=== PATIENT | male | born 1945 | race Caucasian/White ===

== ENCOUNTER 2019-04-09 09:38 | Inpatient (IN) ==
[2019-04-09] MEDS ORDERED: ZOFRAN IV PRN (10:32)
[2019-04-09] MEDS ORDERED: NS 1,000 ML IV ONE (10:41)
[2019-04-09] MEDS ORDERED: VANCOMYCIN IV PER PHARMACY MISC SCH (10:45)
[2019-04-09] MEDS ORDERED: DUONEB (A & A) INH ONE (11:00)
--- NOTE | 2019-04-09 11:18 | Diag Imaging Result Doc PS360 ---
EXAM: CHEST-2 VIEWS - 04/09/2019 HISTORY: r/o pna TECHNIQUE: Chest two views COMPARISON: 04/01/2019 portable chest FINDINGS: Heart size is normal. There is some tortuosity of the thoracic aorta. There is apparent left midlung granuloma from old granulomatous disease There is decreased subsegmental atelectasis at the left base. There is no consolidation, pleural effusion, or pneumothorax identified. Central venous catheter remains in place. There is thoracic spondylosis noted. IMPRESSION: Decreased subsegmental atelectasis at left base compared to prior. No evidence of pneumonia. Electronically signed by Mac Olivera 04/09/2019 11:16 AM
[2019-04-09] MEDS: TYLENOL PO PRN ×2 (11:28→20:25)
--- NOTE | 2019-04-09 11:31 | EKG Report ---
Test Performed on : 04/09/2019 11:18:17 AM Test Reason : rythm eval Blood Pressure : / mmHG Vent. Rate : 082 BPM Atrial Rate : 082 BPM P-R Int : 156 ms QRS Dur : 078 ms QT Int : 372 ms P-R-T Axes : 033 000 017 degrees QTc Int : 434 ms Normal sinus rhythm. Normal ECG When compared with ECG of 01-APR-2019 07:21, No significant change was found Confirmed by Sarthak Beck MD ([id number]) on 04/10/2019 4:57:12 PM
[2019-04-09] MEDS: ZOSYN 3.375 GM in NS 50 ML IV SCH ×2 (11:44→18:25)
[2019-04-09 11:52] LABS: ALLEN TEST YES; BE 2.5 mmoll (-3.0-3.0); BLOOD TYPE ARTERIAL; HCO3-(ACT) 26.8 mmoll (20.0-26.0); METHB 1.4 % (0.0-1.5); O2(CT) 21.1 mL/dL (15.0-23.0); O2HB 95.4 % (95.0-99.0); PCO2(98.6) 32 mmHg (35-45); PO2(98.6) 159 mmHg (60-100); SAMPLE BLOOD; SAO2 99.4 % (95.0-100.0); THB 15.5 g/dL (11.5-17.4)
[2019-04-09] MEDS: DUONEB (A & A) INH SCH ×3 (11:53→19:45)
[2019-04-09 11:54] LABS: MODALITY CANNULA
[2019-04-09 12:07] LABS: INR 1.07
[2019-04-09 12:09] LABS: BASO# 0.01 X1000 (0.0-0.2); BASO% 6.7 % (0.0-0.8); EOS# 0.01 X1000 (0.0-0.7); EOS% 6.7 % (0.0-10.0); HEMATOCRIT 34.4 % (42.0-52.0); HEMOGLOBIN 11.4 g/dL (14.0-18.0); LYMPH# 0.11 X1000 (1.2-3.4); LYMPH% 73.3 % (20.5-51.1); MCH 32.3 PG (27-31); MCHC 33.1 g/dL (33-37); MCV 97.5 FL (81-99); MONO# 0.02 X1000 (0.11-0.59); MONO% 13.3 % (1.7-9.3); MPV 11.7 FL (7.4-10.4); PLT 60 X1000 (130-400); RBC 3.53 XMIL (4.7-6.1); RDW 12.1 % (11.5-14.5); WBC < 0.20 X1000 (4.8-10.8)
[2019-04-09 12:46] LABS: AGAP 12; ALB/GLOB RATIO 1.6; ALBUMIN 4.1 g/dL (3.5-5.0); ALKALINE PHOSPHATASE 73 U/L (32-122); BUN 20 mg/dL (8-22); CALCIUM 9.1 mg/dL (8.8-10.2); CHLORIDE 96 mmol/L (98-107); CK PROFILE 30 U/L (24-204); COSMO 273; CREATININE 0.8 mg/dL (0.7-1.2); ESTIMATED GFR > 60; GLUCOSE 129 mg/dL (70-104); GOT 10 U/L (10-34); GPT 11 U/L (10-44); MAGNESIUM 1.8 mg/dL (1.5-2.7); POTASSIUM 4.2 mmol/L (3.5-5.1); SODIUM 134 mmol/L (136-145); TCO2 26 mmol/L (25-35); TOTAL BILIRUBIN 1.59 mg/dL (0.20-1.00); TOTAL PROTEIN 6.6 g/dL (6.3-8.3)
--- NOTE | 2019-04-09 14:31 | HISTORY AND PHYSICAL ---
PRIMARY CARE PROVIDER: Sarthak Trujillo. PRIMARY ENT: Dr. Garcia Villanova CHIEF COMPLAINT: He did not feel well. He has had a low-grade fever. HISTORY OF PRESENT ILLNESS: Mr. Theo Cordova is a 74-year-old male who back in September 2018, was diagnosed with non-Hodgkin small B-cell lymphoma. He had 4 chemo treatments and then in January, it was turned to a diagnosis of diffuse large B-cell lymphoma. His first chemo since that diagnosis was on the . The very next day he had Udenyca for a low neutrophil. He is now 8 days later and he still has significant neutropenia. He states that the night he was having chills and he felt lightheaded this morning but otherwise he has had no complaints. No coughing up any colors. Not short of breath. However, when he arrived here, he had a fever with a low O2 saturation. Despite that he did not have any shortness of breath. He did state that for the last 4 mornings, not this morning. 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 He did 12 hour shifts 4 days in a row. He also states that the chief had the flu, but he does not think that they had been in the office. So we are admitting him for neutropenic fever. PAST MEDICAL HISTORY: 1. Non-Hodgkin small B-cell lymphoma, September 2018, received 4 chemo treatments. 2. Diffuse large B-cell lymphoma diagnosed in January. First chemo treatment on the 02 of April. 3. Looks like he may take medication for gout, but he denies history of gout. He essentially denies any other history. SURGICAL HISTORY: 1. Bilateral inguinal hernia repair. 2. Bilateral cataracts. 3. Most recently right chest port. 4. On March 26, partial tonsillectomy and right tonsil biopsy. 5. On March 26. He also had a right neck lymph node removed. SOCIAL HISTORY: Denies tobacco, alcohol or illicit drug use. 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 He gets around without any problems. FAMILY HISTORY: Mother no medical conditions. Father had skin cancer and then he just lost his son in January. His son was age 42 from colon cancer. ALLERGIES: No known drug allergies. HOME MEDICATIONS: Not reconciled yet. REVIEW OF SYSTEMS: Fourteen point review of systems are complete and all were negative except for those mentioned above HPI. PHYSICAL EXAMINATION: VITAL SIGNS: Temperature 100.3 degrees, heart rate 78, respiratory rate 14, blood pressure 106/70, O2 saturation 95% on 3 L nasal cannula. GENERAL: Mr. Theo Cordova is a 74-year-old male. He is in no acute distress. He is able answer questions appropriately. HEENT: Atraumatic, normocephalic. Pupils equal, round, reactive to light. Extraocular movements intact. Mucous membranes are dry. NECK: Trachea midline. CARDIOVASCULAR: S1, S2. Regular rate and rhythm. No rubs, gallops, murmurs. No lower extremity edema. +2 dorsalis and radial pulses. Negative JVD or carotid bruits. PULMONARY: Clear to auscultate. Bilateral breath sounds. No accessory muscle use or work of breathing noted. GI: Soft, nontender, nondistended. Positive bowel sounds x4. EXTREMITIES: Moves all extremities equally. Full range of motion. NEUROLOGIC: A and O x3. Follows commands. Sensory is intact. SKIN: Warm, dry, intact but pale. LABORATORY DATA: White blood cells less than 0.20, hemoglobin 11.4, hematocrit 34.4, platelet count 60,000, neutrophil count 0. INR is 1.07, PTT is 26.0. ABGs pH 7.50, pCO2 32, PO2 159, bicarb 26, base excess 2.5, saturation 95%, carboxyhemoglobin is 2.7 lactate 1.4. Sodium 134, potassium 4.2, BUN 20, creatinine 0.8, glucose 129, calcium 9.1, magnesium is 1.8, bilirubin is 1.59, AST 10, ALT 11. CK 30, troponin 14, proBNP 106. Albumin is 4.1, lactate 1.9. MICROBIOLOGY: Micro blood cultures pending. IMAGING: Chest x-ray, decreased subsegmental atelectasis with the left at the left base compared to prior. No evidence of pneumonia. EKG normal sinus rhythm, rate 82, QTc is 434. ASSESSMENT/PLAN: 1. Neutropenic fever. He is on reverse isolation. Neutropenic diet. Dr. Tapia consulted. Broad- spectrum antibiotics started. Intravenous fluids given. Lactate series ordered. 2. Diffuse large B-cell lymphoma. The first chemo treatment was April 02. The day after his when he received the Udenyca for the low neutrophil and white blood cell count. Dr. Tapia is following. 3. Sepsis, however lactates are normal. He is requiring oxygen, extremely low white count and he has a fever, so broad-spectrum antibiotics and IV fluids. 4. Anemia. We will do some anemia labs. 5. Hyperbilirubinemia. Could be dehydration. 6. Hyperglycemia. We will do a hemoglobin A1c. 7. Deep venous thrombosis prophylaxis. Sequential compression devices. 8. Thrombocytopenia. Platelet count is 60,000. Again, he has got Dr. Tapia following him. Dictated by PORTILLO Massey for Terrell Stiles MD cc: PORTILLO Massey MD
[2019-04-09] MEDS ORDERED: NORCO-5 PO PRN (15:25)
[2019-04-09] MEDS ORDERED: VANCOMYCIN 2,000 MG in NS 500 ML IV ONE (15:30)
[2019-04-09] MEDS: NS 1,000 ML IV SCH (16:38)
[2019-04-09 17:18] LABS: HEMOGLOBIN A1C 5.6 % (4.8-6.0)
[2019-04-09 17:19] LABS: IRON SATURATION 29 %; TIBC 204 ug/dL; TOTAL IRON 60 ug/dL (53-167); UNBOUND IRON 144 ug/dL (112-346)
[2019-04-09 17:33] LABS: FERRITIN 571 ng/mL (30-400)
[2019-04-09 17:38] LABS: URINE SOURCE CLEAN CATCH
--- NOTE | 2019-04-09 17:40 | HEMO/ONC CONSULTATION ---
DATE: 04/09/2019 REASON FOR CONSULTATION: He is a known patient of ours, for the treatment of diffuse large B-cell lymphoma. HISTORY OF PRESENT ILLNESS: The patient came to our clinic today for a lab check because he was dizzy at home and just overall not feeling well. He had a temperature of 99.3 degrees with chills. We ran a CBC and he was found to have an absolute neutrophil count of 0.1. We called the hospitalist to direct admit the patient for neutropenic fevers and requested him to obtain blood cultures and start him on vancomycin and Zosyn. Hospitalist service admitted Mr. Cordova very quickly. His ER workup found a 0.00 neutrophil count. His flu test was negative. His bilirubin was found to be doubled from what we have in the office. Last count was 0.8, is apparently 1.59 in the ER. Blood cultures have been drawn and the patient has been started on Zosyn and normal saline. We treat the patient in the clinic for diffuse large B-cell lymphoma. He recently started treatment with R-CHOP which is rituximab, Cytoxan, Adriamycin and vincristine. His first dose was on 04/02/2019, last . The patient received Udenyca 6mg, a white blood cell booster on 04/03/2019. Patient was originally diagnosed with non-Hodgkin's lymphoma and he took four chemo treatments of Rituxan and Treanda. A recent biopsy of his right tonsil showed diffuse large B-cell lymphoma and treatment was changed. The patient has no other medical history. PAST SURGICAL HISTORY: 1. Bilateral inguinal hernia repair. 2. Bilateral cataracts. 3. Right chest port. 4. Partial tonsillectomy and right tonsil biopsy. 5. Right neck lymph node removal. SOCIAL HISTORY: Patient denies tobacco, alcohol, or illicit drug use. ALLERGIES: No known drug allergies. HOME MEDICATIONS: Allopurinol for tumor lysis prophylaxis. Zinc sulfate, Zofran, vitamin B complex, Reglan, promethazine, omeprazole, and Zyrtec. REVIEW OF SYSTEMS: Pertinent positives were mentioned in the HPI. All other review of systems negative. PHYSICAL EXAMINATION: Vital Signs: Temperature 98.6 degrees, status post acetaminophen, pulse rate 81, respiratory rate 20, blood pressure 127/75, O2 saturation 97% on room air. 0/10 pain. General: Pleasant gentleman in no acute distress. HEENT: Sclerae anicteric. PERRLA. Oral mucosa dry. Cardiovascular: Normal S1, S2. Heart rate and rhythm regular. No murmurs appreciated. Respiratory: Lung sounds are clear to auscultation. Normal respiratory effort. Gastrointestinal: Abdomen is soft, nontender, nondistended. Extremities: No lower extremity edema noted. Neurological: Alert and oriented x3. Follows commands. No focal motor deficits noted. Normal gait. Skin: Warm dry and intact. Pale. LABORATORY DATA: WBCs less than 0.2, hemoglobin 11.4, hematocrit 34.4. ANC 0.00. Sodium 134, potassium 4.2, total bilirubin 1.59, AST 10, ALT 11, alkaline phosphatase 73, plasma lactate 1.9. RADIOLOGY: Chest x-ray shows decreased subsegmental atelectasis at the left base compared to prior. No evidence of pneumonia. ASSESSMENT AND PLAN: 1. Neutropenic fever. The patient has been placed on reverse isolation and placed on broad- spectrum antibiotics. Blood cultures have been run. IV fluids infusing. Continue medical management. We will continue to monitor. 2. Diffuse large B-cell lymphoma. The patient had his first R-CHOP treatment last , 04/02/2019. He had Udenyca 6 mg on 04/03/2019. This drug cannot be repeated for 14 days. 3. Anemia. This is most likely related to chemotherapy. It is mild and stable. We will continue to monitor. 4. Thrombocytopenia. The patient's platelets are 60,000. They have not been that low in the office. We will continue to monitor. Check B12 and folate. 5. Hyperbilirubinemia. Aware. We will continue to monitor. 6. Deep venous thrombosis prophylaxis. Put the patient on sequential compression devices for now. Dictated by PORTILLO Escamilla for Tito Tapia MD cc: Tito Tapia MD [facility]
[2019-04-09 17:52] LABS: BILIRUBIN URINE NEGATIVE (NEGATIVE); BLOOD URINE NEGATIVE (NEGATIVE); COLOR YELLOW; GLUCOSE URINE NEGATIVE (NEGATIVE); KETONE URINE NEGATIVE (NEGATIVE); LEUKOCYTES URINE NEGATIVE (NEGATIVE); NITRITE URINE NEGATIVE (NEGATIVE); PH URINE 6.5; PROTEIN URINE NEGATIVE (NEGATIVE); SP GRAVITY URINE 1.014; TURBIDITY URINE CLEAR (CLEAR); UROBILINOGEN URINE NORMAL (NORMAL)
[2019-04-09 17:58] LABS: UR EPITHELIAL CELLS <10 /HPF (<10); URINE BACTERIA NEGATIVE /HPF; URINE RBC <10 /HPF (<10); URINE WBC <10 /HPF (<10)
[2019-04-09] MEDS: GRANIX SUBQ SCH (18:26)
--- NOTE | 2019-04-09 19:24 | HISTORY AND PHYSICAL ---
ADDENDUM: This is a patient with diffuse B-cell lymphoma. He has had chemotherapy. He had R- CHOP on 04/02/2019. I think he got the filgrastim type medication on Saturday. This is the second episode of lymphoma, but in any case, he came in with fever. He is profoundly neutropenic with a white count of less than 1. So, in any case, the patient was evaluated. He was placed on Neupogen and had improvement. He will be placed on broad-spectrum antibiotics and we will continue to follow. cc: Terrell Stiles MD
[2019-04-10] MEDS: DUONEB (A & A) INH SCH ×7 (00:20→23:17)
[2019-04-10] MEDS: ZOSYN 3.375 GM in NS 50 ML IV SCH ×5 (00:25→23:54)
[2019-04-10 08:11] LABS: AGAP 11; ALBUMIN 3.1 g/dL (3.5-5.0); ALKALINE PHOSPHATASE 56 U/L (32-122); BUN 13 mg/dL (8-22); CALCIUM 8.3 mg/dL (8.8-10.2); CHLORIDE 103 mmol/L (98-107); COSMO 279; CREATININE 0.8 mg/dL (0.7-1.2); ESTIMATED GFR > 60; GLUCOSE 117 mg/dL (70-104); GOT 9 U/L (10-34); GPT 11 U/L (10-44); SODIUM 139 mmol/L (136-145); TCO2 25 mmol/L (25-35); TOTAL BILIRUBIN 0.84 mg/dL (0.20-1.00); TOTAL PROTEIN 6.2 g/dL (6.3-8.3)
[2019-04-10 08:29] LABS: BASO# 0.01 X1000 (0.0-0.2); BASO% 5.3 % (0.0-0.8); EOS# 0.02 X1000 (0.0-0.7); EOS% 10.5 % (0.0-10.0); HEMATOCRIT 30.9 % (42.0-52.0); HEMOGLOBIN 9.9 g/dL (14.0-18.0); LYMPH% 52.6 % (20.5-51.1); MCH 31.7 PG (27-31); MONO# 0.06 X1000 (0.11-0.59); MONO% 31.6 % (1.7-9.3); MPV 11.8 FL (7.4-10.4); PLT 52 X1000 (130-400); RBC 3.12 XMIL (4.7-6.1); RDW 12.1 % (11.5-14.5); WBC < 0.20 X1000 (4.8-10.8)
--- NOTE | 2019-04-10 08:34 | Diag Imaging Result Doc PS360 ---
CT THORAX W/CONTRAST - 04/10/2019 INDICATION: pneumonia COMPARISON: Chest x-ray 04/09/2019 FINDINGS: There is some linear atelectasis in the lung bases. There are calcified granulomas in the left upper lobe. No infiltrates. Airways are clear. No adenopathy. Heart and great vessels are normal. Upper abdominal images are normal. There is a right chest port in good position. There are moderate degenerative changes of the spine. No acute or suspicious bony lesion. IMPRESSION: No acute process. This exam was performed using automated exposure control, adjustment of mA or kV according to patient size, and/or use of iterative reconstruction technique Electronically signed by Marc Haines 04/10/2019 8:32 AM
--- NOTE | 2019-04-10 09:22 | PROGRESS NOTE ---
DATE: 04/10/2019 SUBJECTIVE: Mr. Cordova is a 74-year-old male who presented to the emergency room via direct admit from Dr. Tapia's office. He is on chemotherapy, CHOP regimen, for diffuse large cell, B cell lymphoma. His last treatment was 04/02/2019. He was in Dr. Tapia's office yesterday when they found him to have a low neutrophil count and a fever of 99.3 with chills. The patient was directly admitted yesterday for monitoring and medications. Today, he is reporting to be feeling fine. His is at the bedside. He says that it hurts to swallow. He denies any chills, headaches or shortness of breath. OBJECTIVE: Vital signs: Blood pressure 144/82, heart rate 90, temperature 98.7 today, and yesterday's max was 100.3. Saturation 95% on room air, and his respirations are 19 per minute. I's and O's show a positive balance of 2325. Urine void is 225 mL. General: A well appearing male, up in bed, in no acute distress. HEENT: Normocephalic and atraumatic. Throat is white with plaques on the right tonsil, presumably at a healing biopsy site. The rest of the throat looks erythematous. Cardiac: Regular rate and rhythm. No murmurs, gallops or rubs. Lungs: Clear to auscultation bilaterally. GI: Soft, nontender and nondistended. Bowel sounds present. Extremities: There is no edema in his arms or his legs. Radial pulses are 2+ bilateral in tibialis anterior, 2+ dorsalis pedis weak pulse. 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 MEDICATIONS: We started tbo-filgrastim yesterday. DIAGNOSTIC DATA: White blood cell count less than 0.2, hemoglobin 9.9, hematocrit 30.9, platelets 52. Sodium 139, potassium 4.0, chloride 103, bicarb 25, BUN is 13, creatinine 0.8, glucose 117, calcium 8.3. Bilirubin is 0.84, AST is 9, ALT is 11, total protein 6.2, albumin 3.1. A1c is 5.6. Strep has been negative. influenza was negative. ASSESSMENT: A 74-year-old male who is currently undergoing chemotherapy regimen for diffuse large cell, B cell lymphoma, presents with neutropenic fever. 1. Neutropenic fever with associated chills. Source of infection is not yet known. On reverse isolation, broad spectrum antibiotics, IV fluids and lactate monitoring. 2. Diffuse large cell, B cell lymphoma. Current chemotherapy treatment, most recent was on 04/02/2019, receiving Udenyca in office. 3. Sepsis with normal lactate because he needs oxygen. 4. Anemia of chronic disease. Elevated ferritin. We will continue to monitor. 5. DVT prophylaxis with SCD pumps for his legs. 6. Thrombocytopenia. Platelet count is still dropping. We will recheck vitamin B12 and folate levels. Dictated by Kaylin Saavedra, Medical Student for Terrell Stiles MD This chart was documented by, Kaylin Saavedra, Medical Student and accurately reflects the services performed, treatment plan and medical decisions as attested by the providers signature Terrell Stiles MD. cc: Terrell Stiles MD [facility]
[2019-04-10] MEDS: GRANIX SUBQ SCH (10:06)
--- NOTE | 2019-04-10 12:53 | HEMO/ONC PROGRESS NOTE ---
DATE: 04/10/2019 SUBJECTIVE: Mr. Cordova is feeling about the same this morning. He has no significant complaint. His fevers have improved. He remains on reverse isolation. There were no acute events overnight. He got his Neupogen injection late in the evening yesterday. OBJECTIVE: Vital Signs: Temperature 98.7 degrees, pulse rate 94, respiratory rate 17, blood pressure 144/82, O2 saturation 94% on room air. He is in 0/10 pain. PHYSICAL EXAMINATION: General: The patient is pleasant and doing well. HEENT: Sclerae is anicteric. PERRLA. Oral mucosa is normal. Oropharynx is red with white plaque from recent tonsil biopsy. Cardiac: Regular rate and rhythm. Normal S1, S2. No murmurs noted. Respiratory: Lung sounds are clear to auscultation. Gastrointestinal: Abdomen is soft, nontender, nondistended. Extremities: No lower extremity edema noted. Neurological: Alert and oriented x3. Follows commands. No focal motor deficits noted. Skin: Warm, dry and intact. The patient appears pale. Lymphatic: No lymphadenopathy noted. LABORATORY DATA: WBCs less than -2.0, hemoglobin 9.9, hematocrit 30.9, platelet count 52,000. ANC 0.0. Sodium 139, potassium 4.0, calcium 8.3. Total bilirubin 0.84. Total protein 6.2, albumin 3.1. RADIOLOGY: Chest CT shows no acute process. Negative for pneumonia. ASSESSMENT AND PLAN: 1. Neutropenic fevers. The patient remains in reverse isolation. His neutrophils continue to remain 0. He is on broad-spectrum antibiotics. Rapid strep negative. Flu screen negative. Preliminary blood cultures so far negative. Continue the patient on IV fluids. Continue to monitor fevers closely. 2. Diffuse large B-cell lymphoma. Continue the patient on Granix injections daily until he reaches an ANC greater than 1.5. We will continue to monitor closely. 3. Anemia. This is most likely related to his chemotherapy. We will continue to monitor closely. 4. Thrombocytopenia. This is also most likely related to his chemotherapy. Today they are 52,000. We will continue to monitor closely. He will need a platelet transfusion for a count less than 20,000 or if he is bleeding. His B12 and folate are normal. 5. Hyperbilirubinemia. This has resolved. His bilirubin is normal today. 6. Deep venous thrombosis prophylaxis. Keep the patient in SCDs and encourage him to get up and walk about the room. 7. Nutrition. The patient needs protein shakes. His protein is slightly low. Please provide a protein with each meal. Dictated by PORTILLO Escamilla for Tito Tapia MD cc: Tito Tapia MD
[2019-04-10] MEDS: VANCOMYCIN 1,800 MG in NS 250 ML IV SCH (16:00)
[2019-04-10] MEDS: NS 1,000 ML IV SCH ×2 (16:01→19:38)
[2019-04-11] MEDS: TYLENOL PO PRN ×2 (00:27→14:36)
[2019-04-11] MEDS: DUONEB (A & A) INH SCH ×6 (03:35→23:11)
[2019-04-11] MEDS: ZOSYN 3.375 GM in NS 50 ML IV SCH ×4 (04:27→22:22)
[2019-04-11] MEDS: NS 1,000 ML IV SCH ×3 (04:28→20:53)
[2019-04-11 08:14] LABS: AGAP 11; ALB/GLOB RATIO 0.9; ALBUMIN 3.1 g/dL (3.5-5.0); ALKALINE PHOSPHATASE 55 U/L (32-122); BUN 7 mg/dL (8-22); CALCIUM 8.7 mg/dL (8.8-10.2); CHLORIDE 102 mmol/L (98-107); COSMO 274; CREATININE 0.8 mg/dL (0.7-1.2); ESTIMATED GFR > 60; GLUCOSE 111 mg/dL (70-104); GOT 11 U/L (10-34); GPT 13 U/L (10-44); POTASSIUM 4.1 mmol/L (3.5-5.1); SODIUM 138 mmol/L (136-145); TCO2 25 mmol/L (25-35); TOTAL PROTEIN 6.4 g/dL (6.3-8.3)
[2019-04-11 08:59] LABS: EOS# 0.01 X1000 (0.0-0.7); EOS% 1.2 % (0.0-10.0); HEMATOCRIT 30.8 % (42.0-52.0); HEMOGLOBIN 9.8 g/dL (14.0-18.0); IMM GRAN# 0.07 X1000 (0.0-0.04); IMM GRAN% 8.5 % (0.0-0.5); LYMPH# 0.14 X1000 (1.2-3.4); LYMPH% 17.1 % (20.5-51.1); MCH 31.7 PG (27-31); MCHC 31.8 g/dL (33-37); MCV 99.7 FL (81-99); MONO# 0.27 X1000 (0.11-0.59); MONO% 32.9 % (1.7-9.3); NEUT# 0.33 X1000 (1.4-6.5); NEUT% 40.3 % (42.2-75.2); PLT 63 X1000 (130-400); RBC 3.09 XMIL (4.7-6.1); RDW 12.1 % (11.5-14.5); WBC 0.82 X1000 (4.8-10.8)
[2019-04-11] MEDS: ARIXTRA SUBQ SCH (10:33)
[2019-04-11] MEDS: GRANIX SUBQ SCH (10:33)
[2019-04-11 10:57] LABS: BANDS 30 % (0-1); EOS 5 % (1-10); LYMPHS 20 % (21-51); MONO 10 % (1-9); SEGS 30 % (42-75)
--- NOTE | 2019-04-11 12:28 | Diag Imaging Result Doc PS360 ---
EXAM: CT NECK W/CONTRAST HISTORY: neutropenic fever TECHNIQUE: CT with intravenous contrast COMPARISON: None. FINDINGS: No sinus opacification. No air-fluid levels. The parotid and submandibular glands are symmetric. There are small bilateral lymph nodes. Normal thyroid and larynx. The soft tissue fullness in the nasopharyngeal region bilaterally, left greater than right. No well-defined fluid collection. Subcutaneous fluid and inflammation lateral to the right hyoid and superficial to the sternocleidomastoid muscle. No abscess. IMPRESSION: 1. Fluid and inflammation lateral to the right thyroid, but no abscess 2. Oral pharyngeal soft tissue fullness This exam was performed using automated exposure control, adjustment of mA or kV according to patient size, and/or use of iterative reconstruction technique. Electronically signed by Charanjit Norman 04/11/2019 12:25 PM
[2019-04-11] MEDS: VANCOMYCIN 1,800 MG in NS 250 ML IV SCH (15:52)
--- NOTE | 2019-04-11 16:43 | PROGRESS NOTE ---
DATE: 04/11/2019 SUBJECTIVE: Patient has no complaints. OBJECTIVE: Blood pressure 141/76, heart rate of 104, respiratory rate of 18, temperature 98.5 degrees, 95% on room air.Cardiovascular: Regular rate and rhythm. Pulmonary: Bilateral breath sounds clear to auscultation. GI: Soft, nontender, nondistended. Bowel sounds are positive. LABORATORY DATA: His white count has come up to 0.82, hemoglobin and hematocrit is 9 and 30, which is stable. Platelets of 63,000, which is up a bit so he actually has some neutrophils now, about 400, but his ANC is still low, so we will continue to watch. Continue empiric antibiotics. Neck CT was obtained because it does look like he has got some fullness in the back of his throat, but the biopsy was more consistent with lymphoma, so I am not quite sure and no clear abscess in any case. Diffuse large B-cell lymphoma. He is followed by Dr. Tapia. He will continue to manage. DISPOSITION: I anticipate discharge once he is afebrile on a course of antibiotics and his white count comes up. That could be as soon as tomorrow, maybe a couple days. We will continue to follow. cc: Terrell Stiles MD
[2019-04-12] MEDS: NS 1,000 ML IV SCH ×2 (01:05→11:53)
[2019-04-12] MEDS: DUONEB (A & A) INH SCH ×2 (03:24→07:46)
[2019-04-12] MEDS: ZOSYN 3.375 GM in NS 50 ML IV SCH ×2 (05:53→11:53)
[2019-04-12 07:34] LABS: AGAP 11; ALBUMIN 3.2 g/dL (3.5-5.0); ALKALINE PHOSPHATASE 57 U/L (32-122); BUN 5 mg/dL (8-22); CHLORIDE 104 mmol/L (98-107); COSMO 277; CREATININE 0.8 mg/dL (0.7-1.2); ESTIMATED GFR > 60; GLUCOSE 111 mg/dL (70-104); GOT 14 U/L (10-34); GPT 13 U/L (10-44); MAGNESIUM 1.8 mg/dL (1.5-2.7); POTASSIUM 3.7 mmol/L (3.5-5.1); SODIUM 140 mmol/L (136-145); TCO2 25 mmol/L (25-35); TOTAL BILIRUBIN 0.35 mg/dL (0.20-1.00); TOTAL PROTEIN 6.3 g/dL (6.3-8.3)
[2019-04-12 07:36] LABS: BASO# 0.03 X1000 (0.0-0.2); BASO% 0.6 % (0.0-0.8); EOS# 0.04 X1000 (0.0-0.7); EOS% 0.8 % (0.0-10.0); HEMATOCRIT 29.6 % (42.0-52.0); HEMOGLOBIN 9.7 g/dL (14.0-18.0); IMM GRAN# 0.55 X1000 (0.0-0.04); IMM GRAN% 10.6 % (0.0-0.5); LYMPH# 0.24 X1000 (1.2-3.4); LYMPH% 4.6 % (20.5-51.1); MCH 32.7 PG (27-31); MCHC 32.8 g/dL (33-37); MCV 99.7 FL (81-99); MONO# 0.69 X1000 (0.11-0.59); MONO% 13.3 % (1.7-9.3); MPV 11.8 FL (7.4-10.4); NEUT# 3.65 X1000 (1.4-6.5); NEUT% 70.1 % (42.2-75.2); PLT 83 X1000 (130-400); RBC 2.97 XMIL (4.7-6.1); RDW 12.3 % (11.5-14.5)
[2019-04-12] MEDS: GRANIX SUBQ SCH (08:07)
[2019-04-12] MEDS: ARIXTRA SUBQ SCH (08:07)
[2019-04-12 09:15] LABS: BANDS 24 % (0-1); LYMPHS 4 % (21-51); MONO 2 % (1-9); SEGS 66 % (42-75)
[2019-04-12 11:46] VITALS: BP 122/81
[2019-04-12] MEDS ORDERED: VANCOMYCIN 1,800 MG in NS 250 ML IV SCH (16:00)
--- NOTE | 2019-04-12 18:14 | DISCHARGE SUMMARY ---
ADMISSION DATE: 04/09/2019 DISCHARGE DATE: 04/12/2019 DISCHARGE DIAGNOSES: 1. Neutropenic fever. 2. Diffuse large B-cell lymphoma involving neck and pharyngeal lymph nodes. CONSULTATION: Dr. Tapia. This was a direct admission from Dr. Tapia. The patient has diffuse B-cell lymphoma. He received R-CHOP on 04/02 and I believe got G-CSF at that point. He came in with fever in the office. His white count was 0.2. He was placed on broad-spectrum antibiotics, vancomycin and Zosyn. Cultures were drawn, but nothing ever grew out. Blood, flu group A, throat cultures all were negative. His urine was clear. We did a chest CT which was unremarkable, a neck CT because he did have swelling of his lymph nodes, more on the left than the right, which had been biopsied, but he had negative throat cultures, and it looked better the day of discharge. So patient was discharged in stable condition on Mcfarland p.r.n. and Augmentin 875 q.12. Encouraged him to use Lactinex as well. Follow up with Dr. Tapia this week for repeat labs. cc: MD Tito Edwards MD [facility] T. Johnson
== END 2019-04-12 16:02 | disposition home or self-care (01) | DRG 809 ==
LOC: SUATTDRO 09:38 → DIRADM 09:38 → EDIPHOLD 10:06 → 3N 15:52
PROVIDERS: ATTEND Internal Medicine